=== PATIENT | female | born 1965 | race Caucasian/White ===

== ENCOUNTER → 2023-04-24 | Outpatient (CLI) | payer OTHER ==
[~2023-04-24] MED LIST: Lidocaine PF 2% (20 MG/ML) 5 ML VIAL ONE; Midazolam 2 MG/2 ML VIAL ONE; fentaNYL 50 MCG/ML 2 ML VIAL ONE
== END ==
LOC: MHCPAIN 08:04
DX: M47.817 Spondylosis without myelopathy or radiculopathy, lumbosacral region (principal); M54.50 Low back pain, unspecified
CPT/HCPCS: J0665; J2250; J3010